=== PATIENT | female | born 1960 | race Native Hawaiian/Other Pacific Islander ===

== ENCOUNTER 2017-03-06 14:57 | Outpatient (CLI) | payer BC | END 2017-03-06 21:07 | disposition home or self-care (01) | LOC: RAD 14:57 | DX: M25.561 Pain in right knee (principal); M25.562 Pain in left knee; M54.5 Low back pain; M54.6 Pain in thoracic spine ==

== ENCOUNTER 2017-05-04 13:04 | Outpatient (CLI) | payer BC | END 2017-05-04 19:38 | disposition home or self-care (01) | LOC: RAD 13:04 | DX: M81.0 Age-related osteoporosis without current pathological fracture (principal) ==

== ENCOUNTER 2020-11-04 13:04 | Outpatient (CLI) | payer BC | END 2020-11-04 20:43 | disposition home or self-care (01) | LOC: US 13:04 | PROVIDERS: ATTEND Nurse Practitioner Family | DX: R80.9 Proteinuria, unspecified (principal) | CPT/HCPCS: 84156 ==

== ENCOUNTER 2021-03-05 12:36 | Outpatient (CLI) | payer BC | END 2021-03-05 21:12 | disposition home or self-care (01) | LOC: LABW 12:36 | PROVIDERS: ATTEND Nurse Practitioner Primary Care | DX: I10 Essential (primary) hypertension (principal); R53.83 Other fatigue; E55.9 Vitamin D deficiency, unspecified | CPT/HCPCS: 36415; 82306; 82550; 82553; 82607; 84443; 84481; 84484; 93005 ==

== ENCOUNTER 2021-08-10 16:19 | Emergency (ER) | payer BC ==
[~2021-08-10] VITALS: Ht 165.1 cm; Wt 98.9 kg
[2021-08-10 16:52] LABS: PLATELET COUNT 486 K/uL (152-353)
[2021-08-10 16:55] LABS: POTASSIUM 3.8 mmol/L (3.6-5.2)
[2021-08-10 19:11] VITALS: BP 110/63; TEMP 97.4
== END 2021-08-10 19:11 | disposition home or self-care (01) ==
LOC: ED 16:19
PROVIDERS: Hospitalist
DX: N39.0 Urinary tract infection, site not specified (principal); N10 Acute pyelonephritis
CPT/HCPCS: 36415; 80048; 81000; 85007; 85027; 96360; 96365; 96375; 99284; J1170; J1885; J1956; J2060; J2405

== ENCOUNTER 2021-11-14 09:44 | Outpatient (CLI) | payer BC, OTHER ==
[~2021-11-14] VITALS: Ht 165.1 cm; Wt 105.5 kg
== END 2021-11-14 20:28 | disposition home or self-care (01) ==
LOC: INF 09:44
PROVIDERS: ATTEND Family Medicine
DX: U07.1 COVID-19 (principal); Z23 Encounter for immunization
CPT/HCPCS: 96365; M0244

== ENCOUNTER 2022-07-23 15:56 | Outpatient (CLI) | payer BC | END 2022-07-23 19:27 | disposition home or self-care (01) | LOC: US 15:56 | PROVIDERS: ATTEND Nurse Practitioner Family | DX: R41.3 Other amnesia (principal) ==

== ENCOUNTER 2023-02-17 11:50 | Outpatient (CLI) | payer BC | END 2023-02-17 18:55 | disposition home or self-care (01) | LOC: MAMMO 11:50 | PROVIDERS: ATTEND Nurse Practitioner Family | DX: R59.0 Localized enlarged lymph nodes (principal) | CPT/HCPCS: G0279 ==